=== PATIENT | male | born 1965 | race Hispanic/Latino ===

== ENCOUNTER 2020-03-26 04:22 | Emergency (ER) | payer SELFPAY ==
--- NOTE | 2020-03-26 04:58 | ER ---
Nurse's Notes [facility] Name: Ty Donaldson Age: 54 yrs Sex: Male : 1965 Arrival Date: 03/26/2020 Time: 04:27 Bed 19 Private MD: Diagnosis: Insomnia;Encounter for general adult medical examination;Encounter for general adult medical examination without abnormal findings Presentation: 03/26 04:36 Chief complaint: Patient states: he is Bipolar and has not had his medication bb (clonazepam) which is what helps him to sleep he also takes lithium. Coronavirus screen: At this time, the client does not indicate any symptoms associated with coronavirus-19. Ebola Screen: No symptoms or risks identified at this time. Initial Sepsis Screen: Does the patient meet any 2 criteria? No. Patient's initial sepsis screen is negative. Does the patient have a suspected source of infection? No. Patient's initial sepsis screen is negative. Risk Assessment: Do you want to hurt yourself or someone else? Patient reports no desire to harm self or others. Onset of symptoms was March 24, 2020. 04:36 Method Of Arrival: Ambulatory bb 04:36 Acuity: JUAN CARLOS 5 bb Triage Assessment: 04:39 General: Appears in no apparent distress. Behavior is calm, cooperative. Pain: Denies bb pain. Historical: - Allergies: 04:39 No Known Allergies; mt2 04:39 No Known Allergies; bb - Home Meds: 04:39 lithium carbonate 300 mg Oral tab 1 tab daily for Bipolar Disorder [Active]; Klonopin mt2 2.5 mg tab Oral 1 tab nightly for Angélica associated with Bipolar Disorder, Adjunct Treatment [Active]; 04:39 Klonopin 2.5 mg tab Oral 1 tab nightly for Angélica associated with Bipolar Disorder, bb Adjunct Treatment [Active]; lithium carbonate 300 mg Oral tab 1 tab daily for Bipolar disorder [Active]; - PMHx: 04:39 Bipolar disorder; mt2 04:39 Bipolar disorder; bb - PSHx: 04:39 None; bb - Immunization history:: Adult Immunizations up to date. - Social history:: Smoking status: unknown. Screenin:44 Abuse screen: Denies threats or abuse. Nutritional screening: No deficits noted. mt2 Tuberculosis screening: No symptoms or risk factors identified. Fall Risk None identified. Assessment: 04:42 General: Appears in no apparent distress. Behavior is cooperative. Pain: Denies pain. mt2 Neuro: No deficits noted. Cardiovascular: No deficits noted. Cardiovascular: No deficits noted. Respiratory: No deficits noted. GI: No deficits noted. : No deficits noted. EENT: No deficits noted. Derm: No deficits noted. Musculoskeletal: No deficits noted. 05:25 Reassessment: PATIENT REFUSED TO CONSENT FOR TREATMENT PT ABLE TO DC AND GO SEE IN va2 [facility]. Psych: 04:44 Subjective:. Objective: Patient is cooperative. Interventions: Urine collected and sent va2 for urine drug test. Pt denies substance abuse. Vital Signs: 04:36 BP 131 / 85; Pulse 92; Resp 14 S; Temp 98.1(O); Pulse Ox 99% on R/A; Weight 85.28 kg bb (R); Height 5 ft. 9 in. (175.26 cm) (R); Pain 0/10; 04:36 Body Mass Index 27.76 (85.28 kg, 175.26 cm) ED Course: 04:27 Patient arrived in ED. 3 04:27 Kaern Weeks, JONATHAN is Primary Nurse. mt2 04:39 Triage completed. bb 04:39 Arm band placed on Patient placed in an exam room, on a stretcher, on pulse oximetry. bb 04:40 Urine collected: clean catch specimen, clear. mt2 04:52 Finn Persaud MD is Attending Physician. tw4 05:25 No provider procedures requiring assistance completed. Patient did not have IV access mt2 during this emergency room visit. 05:25 Bed in low position. Call light in reach. Side rails up X 1. mt2 Administered Medications: No medications were administered Outcome: 04:57 Discharge ordered by . tw4 05:25 Discharged to home ambulatory. mt2 05:25 Condition: good 05:25 Discharge instructions given to patient, Instructed on follow up and referral plans. Demonstrated understanding of instructions, follow-up care. 05:55 Patient left the ED. mt2 Signatures: Lina Worthy RN RN Finn Muniz MD MD tw4 Francoise Crouch cl3 Karen Weeks RN RN mt2
--- NOTE | 2020-03-26 04:58 | EDPHYS ---
Physician Documentation [facility] Name: Ty Donaldson Age: 54 yrs Sex: Male : 1965 Arrival Date: 03/26/2020 Time: 04:27 Bed 19 Private MD: ED Physician Finn Persaud HPI: 03/26 05:21 This 54 yrs old Male presents to ER via Ambulatory with complaints of Psych tw4 Problem. 05:21 The patient presents to the emergency department with anxiety, over a relationship. tw4 Onset: The symptoms/episode began/occurred today. Associated signs and symptoms: The patient has no apparent associated signs or symptoms. Severity of symptoms: At their worst the symptoms were mild in the emergency department the symptoms. The patient has experienced similar episodes in the past, a few times. The patient has not recently seen a physician. "cant sleep". Historical: - Allergies: 04:39 No Known Allergies; mt2 04:39 No Known Allergies; bb - Home Meds: 04:39 lithium carbonate 300 mg Oral tab 1 tab daily for Bipolar Disorder [Active]; Klonopin mt2 2.5 mg tab Oral 1 tab nightly for Angélica associated with Bipolar Disorder, Adjunct Treatment [Active]; 04:39 Klonopin 2.5 mg tab Oral 1 tab nightly for Angélica associated with Bipolar Disorder, bb Adjunct Treatment [Active]; lithium carbonate 300 mg Oral tab 1 tab daily for Bipolar disorder [Active]; - PMHx: 04:39 Bipolar disorder; mt2 04:39 Bipolar disorder; bb - PSHx: 04:39 None; bb - Immunization history:: Adult Immunizations up to date. - Social history:: Smoking status: unknown. ROS: 07:02 Constitutional: Negative for fever, chills, and weight loss, Eyes: Negative for injury, tw4 pain, redness, and discharge, Cardiovascular: Negative for chest pain, palpitations, and edema, Respiratory: Negative for shortness of breath, cough, wheezing, and pleuritic chest pain, Abdomen/GI: Negative for abdominal pain, nausea, vomiting, diarrhea, and constipation, Back: Negative for injury and pain, Skin: Negative for injury, rash, and discoloration, Neuro: Negative for headache, weakness, numbness, tingling, and seizure. 07:02 Psych: Positive for anxiety, Negative for depression, drug dependence, alcohol dependence, auditory hallucinations. Exam: 07:02 Constitutional: This is a well developed, well nourished patient who is awake, alert, tw4 and in no acute distress. Head/Face: Normocephalic, atraumatic. Chest/axilla: Normal chest wall appearance and motion. Nontender with no deformity. No lesions are appreciated. Cardiovascular: Regular rate and rhythm with a normal S1 and S2. No gallops, murmurs, or rubs. Normal PMI, no JVD. No pulse deficits. Respiratory: Lungs have equal breath sounds bilaterally, clear to auscultation and percussion. No rales, rhonchi or wheezes noted. No increased work of breathing, no retractions or nasal flaring. Abdomen/GI: Soft, non-tender, with normal bowel sounds. No distension or tympany. No guarding or rebound. No evidence of tenderness throughout. Back: No spinal tenderness. No costovertebral tenderness. Full range of motion. MS/ Extremity: Pulses equal, no cyanosis. Neurovascular intact. Full, normal range of motion. Neuro: Awake and alert, GCS 15, oriented to person, place, time, and situation. Cranial nerves II-XII grossly intact. Motor strength 5/5 in all extremities. Sensory grossly intact. Cerebellar exam normal. Normal gait. Vital Signs: 04:36 BP 131 / 85; Pulse 92; Resp 14 S; Temp 98.1(O); Pulse Ox 99% on R/A; Weight 85.28 kg bb (R); Height 5 ft. 9 in. (175.26 cm) (R); Pain 0/10; 04:36 Body Mass Index 27.76 (85.28 kg, 175.26 cm) bb MDM: 04:52 Patient medically screened. tw4 04:55 Differential diagnosis: med refill. Data reviewed: vital signs, nurses notes. Medical tw4 screen evaluation completed. EMTALA emergency medical condition absent. Administered Medications: No medications were administered Disposition: 03/26/20 04:57 Discharged to Home. Impression: Insomnia, Encounter for general adult medical examination, Encounter for general adult medical examination without abnormal findings. - Condition is Stable. - Discharge Instructions: Medical Screening Exam. - Medication Reconciliation Form, Thank You Letter, Antibiotic Education, Prescription Opioid Use form. - Follow up: Private Physician; When: Upon discharge from the Emergency Department; Reason: Recheck today's complaints, Continuance of care, Re-evaluation by your physician. - Problem is new. - Symptoms are unchanged. Signatures: Lina Worthy RN RN Finn Persaud MD MD tw4 Karen Weeks RN RN mt2 Corrections: (The following items were deleted from the chart) 05:55 04:57 03/26/2020 04:57 Discharged to Home. Impression: Insomnia; Encounter for general mt2 adult medical examination; Encounter for general adult medical examination without abnormal findings. Condition is Stable. Forms are Medication Reconciliation Form, Thank You Letter, Antibiotic Education, Prescription Opioid Use. Follow up: Private Physician; When: Upon discharge from the Emergency Department; Reason: Recheck today's complaints, Continuance of care, Re-evaluation by your physician. Problem is new. Symptoms are unchanged. tw4
[2020-03-26 06:01] VITALS: BP 131/85; TEMP 98.1; O2SAT 99
== END 2020-03-26 05:55 | disposition home or self-care (01) ==
LOC: ER 04:22
DX: G47.00 Insomnia, unspecified (principal); Z00.00 Encounter for general adult medical examination without abnormal findings; F31.9 Bipolar disorder, unspecified
CPT/HCPCS: 99283